=== PATIENT | female | born 1960 | race Caucasian/White ===

== ENCOUNTER → 2018-10-04 | Outpatient (REF) | payer SELFPAY ==
[2018-10-04 16:36] LABS: BASO # 0.1 10^3/uL (0.0-0.2); BASO % 1.1 % (0.0-1.0); EOS # 0.1 10^3/uL (0.0-0.50); EOS % 1.6 % (0.0-3.0); HEMATOCRIT 38.8 % (36.0-47.0); HEMOGLOBIN 12.9 g/dl (12.0-15.5); LYMPH # 2.9 10^3/uL (1.5-4.5); LYMPH % 33.6 % (24.0-44.0); MEAN CORPUSCULAR HEMOGLOBIN 30.5 pg (27.0-33.0); MEAN CORPUSCULAR HGB CONC 33.2 g/dl (32.0-36.5); MEAN CORPUSCULAR VOLUME 91.7 fl (80.0-96.0); MONO # 0.7 10^3/uL (0.0-0.8); MONO % 8.7 % (0.0-5.0); NEUTROPHILS # 4.7 10^3/uL (1.8-7.7); NEUTROPHILS % 54.8 % (36.0-66.0); PLATELET COUNT, AUTOMATED 294 10^3/uL (150-450); RED BLOOD COUNT 4.23 10^6/uL (4.00-5.40); WHITE BLOOD COUNT 8.5 10^3/uL (4.0-10.0)
[2018-10-04 16:41] LABS: ALBUMIN 4.2 GM/DL (3.2-5.2); ALT/SGPT 45 U/L (12-78); BILIRUBIN,TOTAL 0.4 MG/DL (0.2-1.0); BLOOD UREA NITROGEN 26 MG/DL (7-18); CALCIUM LEVEL 9.2 MG/DL (8.8-10.2); CARBON DIOXIDE LEVEL 26 MEQ/L (21-32); CHLORIDE LEVEL 104 MEQ/L (98-107); CHOLESTEROL LEVEL 137 MG/DL (<200); CHOLESTEROL RISK RATIO 2.537 (<5); CREATININE FOR GFR 0.94 MG/DL (0.55-1.30); FREE T4 0.89 NG/DL (0.76-1.46); GLOMERULAR FILTRATION RATE > 60.0 (>45); GLUCOSE, FASTING 99 MG/DL (70-100); HDL CHOLESTEROL 54 MG/DL (>40); LDL CHOLESTEROL 66 MG/DL (<100); NON-HDL-C 83 MG/DL; POTASSIUM SERUM 4.6 MEQ/L (3.5-5.1); SODIUM LEVEL 138 MEQ/L (136-145); TOTAL 25(OH) VITAMIN D 31.8 NG/ML (30.0-100.0); TOTAL PROTEIN 7.4 GM/DL (6.4-8.2); TRIGLYCERIDES LEVEL 86 MG/DL (<150)
[2018-10-04 18:04] LABS: APPEARANCE, URINE CLOUDY (CLEAR); BACTERIA, URINE AUTO NEGATIVE (NEGATIVE); BILIRUBIN, URINE AUTO NEGATIVE (NEGATIVE); BLOOD, URINE BLOOD NEGATIVE (NEGATIVE); COLOR, URINE YELLOW (YELLOW); GLUCOSE, URINE (UA) AUTO NEGATIVE (NEGATIVE); KETONE, URINE AUTO NEGATIVE (NEGATIVE); LEUKOCYTE ESTERASE, URINE AUTO TRACE (NEGATIVE); MUCUS, URINE SMALL (NEGATIVE); NITRITE, URINE AUTO NEGATIVE (NEGATIVE); PROTEIN, URINE AUTO NEGATIVE (NEGATIVE); RBC, URINE AUTO 1 /HPF (0-3); SPECIFIC GRAVITY URINE AUTO 1.018 (1.002-1.035); SQUAMOUS EPITHELIAL CELL UR AU 2 /HPF (0-6); UROBILINOGEN, URINE AUTO 0.2 mg/dL (0.0-2.0); WBC, URINE AUTO 1 /HPF (0-3)
[2018-10-07 00:06] LABS: Lyme Disease IgG/IgM Antibodie <0.91 ISR (0.00-0.90); Lyme Disease IgM Ab Quantitati <0.80 index (0.00-0.79)
== END ==
LOC: M LAB REF 15:57
PROVIDERS: ATTEND Family Medicine
DX: Z13.228 Encounter for screening for other metabolic disorders (principal)

== ENCOUNTER → 2018-11-02 | Outpatient (CLI) | payer MEDICAID ==
--- NOTE | 2018-11-02 17:04 | REP ---
MRI lumbar spine without contrast: History: Low back pain with bilateral numbness and tingling. Technique: Sagittal and axial T1 and T2-weighted scans are acquired in the usual fashion with and without fat saturation. Sequences include spin echo, turbo spin-echo, and STIR imaging sequences. MRI findings: Lumbar vertebral body heights are preserved. Alignment is normal. Pedicles and posterior elements are intact. There is no evidence of spondylolysis or spondylolisthesis. No extra vertebral abnormality is observed. Normal caliber aorta. The tip of the conus medullaris is normal in position and appearance L1. Axial and sagittal images at L1-L2 demonstrate minimal disc bulging. No central canal stenosis or foraminal narrowing. At L2-L3, there is diffuse disc bulging effacing the ventral subarachnoid space. There is mild central canal stenosis due to diffuse disc bulging and developmentally somewhat short pedicles. Midline AP dimension of the thecal sac is 9.7 mm. There is some ligamentum flavum hypertrophy as well at L2-3. No neural foraminal encroachment. At L3-4, there is a left posterior focal disc protrusion compressing the left ventral margin of the thecal sac. The protrusion extends to the through the foraminal segment producing mild left-sided foraminal encroachment as well. Canal is developmentally somewhat small. Midline AP dimension of the thecal sac at the 3-4 level is 8 mm. There is mild facet hypertrophy and L3-4 bilaterally. At L4-L5, there is fairly advanced osteoarthritic facet disease bilaterally with associated ligamentum flavum hypertrophy. There is moderate central canal stenosis due to this and diffuse disc bulging. The AP dimension of the thecal sac and L4-5 is 8 mm. There is mild left-sided foraminal encroachment due to disc bulging and facet hypertrophy. At L5-S1, there is diffuse disc bulging. There is mild right-sided foraminal encroachment due to disc bulging and facet hypertrophy. Facet hypertrophy is worse on the right. Impression: Moderate diffuse degenerative spondylosis changes. Multilevel central canal stenosis at the L3 for a and L4-5. Multilevel neural foraminal narrowing as above. There is a left posterior disc protrusion at L3-4. Electronically Signed by Enrique Dinero MD 11/02/2018 06:23 P
== END ==
LOC: M RAD 11:03
PROVIDERS: ATTEND Family Medicine
DX: M51.26 Other intervertebral disc displacement, lumbar region (principal); M48.061 Spinal stenosis, lumbar region without neurogenic claudication; M47.816 Spondylosis without myelopathy or radiculopathy, lumbar region

== ENCOUNTER → 2018-11-08 | Outpatient (CLI) | payer MEDICAID ==
--- NOTE | 2018-11-08 15:18 | REP ---
BILATERAL SCREENING DIGITAL MAMMOGRAM WITH 3D TOMOSYNTHESIS: This is a baseline study for this patient, there are no comparisons. There are no palpable abnormalities or other breast complaints. The the patient states she has not had a clinical breast examination in over a year. The the patient states she performs self-breast examinations zero times per year. The Tyrer-Cuzick Score is: 7.4% . 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 This disease results in calcium deposition, effects elasticity of skin and blood vessels and can cause blindness similar to macular degeneration. There are scattered areas of fibroglandular density. Additionally, there are at least four nodular densities in the right breast and three nodular densities in the left breast. There are no comparison studies to document stability of these nodular densities. There are calcifications in one of the left breast nodular densities. These calcifications appear to be benign macrocalcifications. There are no additional findings on tomosynthesis. Impression: BIRADS/ACR category 0 mammogram. Incomplete, additional imaging evaluation is needed . Recommendation: The patient should return for spot compression views of the bilateral nodular densities and ultrasound of the nodular densities. This mammogram was interpreted with the aid of a FDA approved computer-aided detection system. A. Negative mammogram reports should not delay biopsy if a dominant or clinically suspicious mass is present. B. Not all breast cancers are identified by mammography or tomosynthesis. C. Adenosis and dense breasts may obscure an underlying neoplasm. Patient letter M0. Electronically Signed by Ruben Morrison MD 11/08/2018 03:09 P
--- NOTE | 2018-11-09 15:20 | DEXA ---
AP SPINE L1 - L4 1.109 -0.7 0.5 LT FEMUR TOTAL 0.933 -0.6 0.3 LT NECK 0.788 -1.8 -0.5 RT FEMUR TOTAL 0.953 -0.4 0.5 RT NECK 0.807 -1.7 -0.4 TOTAL BODY TOTAL OTHER COMMENTS: Normal bone densitometry of the spine. There is low bone density of the hips. FOLLOW-UP: Recommendation for the next bone density exam: 2 years. JUAN
== END ==
LOC: M WHC 12:39
PROVIDERS: ATTEND Family Medicine
DX: Z12.31 Encounter for screening mammogram for malignant neoplasm of breast (principal); Z13.820 Encounter for screening for osteoporosis

== ENCOUNTER → 2018-11-23 | Outpatient (CLI) | payer MEDICAID, OTHER ==
--- NOTE | 2018-11-23 18:00 | REP ---
Digital diagnostic bilateral mammography with CAD and focused bilateral sonography: History: Screening mammography from November 08, 2018 was BIRADS category zero incomplete because of the presence of multiple bilateral nodules for which diagnostic imaging was recommended. No remote prior mammography is available. Mammographic findings: Magnified focal spot compression views of each breast were obtained using craniocaudad, true MLO, and mediolateral oblique projections. These confirm the presence of multiple smoothly marginated nodules scattered bilaterally in each breast. One of these contains typical benign macrocalcifications consistent with calcification in a fibroadenoma. No spiculated lesion is seen. No clustered microcalcification is seen. There is vascular calcification present bilaterally. Sonographic findings: The superior medial quadrant of each breast is scanned along with the upper outer quadrant on the left. Multiple hypoechoic nodules are seen sonographically. In the right breast one o'clock there is a nodule 3.5 cm from the nipple measuring 0.7 x 0.5 x 0.5 cm. In the left breast at 1 o'clock there is a hypoechoic nodule 3.4 cm from the nipple measuring 0.8 x 0.8 x 0.6 cm. In the left breast at 9 o'clock there is a hypoechoic nodule with echogenic foci within it measuring 1.3 x 1.0 x 0.9 cm. This is located 2.2 cm from the nipple. Heterogeneous fibroglandular background echotexture is seen. No acoustic shadowing or other suspicious features are seen. Impression: BIRADS category II benign findings. Repeat screening mammography recommended 1 year. BIRADS 2: BI-RADS/ACR category 2 mammogram. Benign Findings. This mammogram was interpreted with the aid of an FDA-approved computer-aided detection system. The patient states that she/he has not had a clinical breast exam in over a year. The patient letter being requested is m1. [facility] for the breast cancer is 7.4 %. Electronically Signed by Enrique Dinero MD 11/23/2018 06:51 P
== END ==
LOC: M RAD 10:19
PROVIDERS: ATTEND Family Medicine
DX: N63.0 Unspecified lump in unspecified breast (principal); R92.8 Other abnormal and inconclusive findings on diagnostic imaging of breast

== ENCOUNTER → 2018-12-15 | Outpatient (REF) | payer OTHER ==
[~2018-12-15] MED LIST: ACET-683 PO; COLA100C5 PO; CRES40TA PO; CYCL10TA PO; EYE VITAMIN PO; GABA-1171 PO; HYDR-3713 PO; KLON0.5T PO; LATA0.0015 OU; LEXA1TAB2 PO; LIDO1PAD TOP; LISI20TA20 PO; MIRA3350 PO; PROBCAP14 PO
[2018-12-15 12:56] LABS: ALBUMIN 4.3 GM/DL (3.2-5.2); ALT/SGPT 86 U/L (12-78); BILIRUBIN,TOTAL 0.3 MG/DL (0.2-1.0); BLOOD UREA NITROGEN 22 MG/DL (7-18); CALCIUM LEVEL 9.2 MG/DL (8.8-10.2); CARBON DIOXIDE LEVEL 28 MEQ/L (21-32); CHLORIDE LEVEL 103 MEQ/L (98-107); CREATININE FOR GFR 0.97 MG/DL (0.55-1.30); GLOMERULAR FILTRATION RATE > 60.0 (>45); GLUCOSE, FASTING 87 MG/DL (70-100); POTASSIUM SERUM 4.7 MEQ/L (3.5-5.1); SODIUM LEVEL 135 MEQ/L (136-145); TOTAL PROTEIN 8.1 GM/DL (6.4-8.2)
[2018-12-15 13:44] LABS: HEMOGLOBIN A1c 5.6 %
== END ==
LOC: M LAB REF 12:31
PROVIDERS: ATTEND Family Medicine
DX: R73.03 Prediabetes (principal)

== ENCOUNTER → 2018-12-17 | Outpatient (CLI) | payer OTHER ==
--- NOTE | 2018-12-17 12:44 | REP ---
CT CHEST WITHOUT CONTRAST: LOW-DOSE SCREENING EXAM. HISTORY: Nicotine dependence. No comparison chest imaging. CT FINDINGS: There is no evidence of pulmonary mass, infiltrate, or significant pulmonary nodule. Some vascular calcification is visible. There is calcification along the course of the left coronary artery. IMPRESSION: Lung-RADS category 1 negative findings[address] Repeat screening CT study recommended in 1 year. Electronically Signed by Enrique Dinero MD 12/17/2018 01:56 P
== END ==
LOC: M RAD 10:23
PROVIDERS: ATTEND Family Medicine
DX: Z12.2 Encounter for screening for malignant neoplasm of respiratory organs (principal); Z87.891 Personal history of nicotine dependence

== ENCOUNTER 2018-12-21 11:00 | Day surgery (SDC) | payer OTHER ==
[~2018-12-21] VITALS: Ht 157.5 cm; Wt 87.5 kg
[2018-12-21] MEDS ORDERED: NS 1,000 ML IV ONE (11:30)
[2018-12-21] MEDS ORDERED: LIDOCAINE 2% INJ 100 MG/5 ML SDV (FOR ANES.) As Ordered ONE (13:47)
[2018-12-21] MEDS ORDERED: PROPOFOL 200 MG/20 ML VIAL As Ordered ONE ×2 (13:47→14:21)
[2018-12-21] MEDS ORDERED: ePHEDrine SULFATE 25 MG/5 ML(5MG/ML) SYRINGE As Ordered ONE (14:29)
[2018-12-21 14:50] VITALS: BP 179/77
--- NOTE | 2018-12-21 15:12 | ROOR ---
Patient Name: Amaya Felix Procedure Date: 12/21/2018 1:31 PM Date of : 1960 Age: 58 Room: [facility] Gender: Female Note Status: Finalized Procedure: Upper GI endoscopy Indications: Heartburn, Suspected gastro-esophageal reflux disease Providers: Joseph Truong MD Referring MD: Frandy POLLOCK MD Requesting Provider: Medicines: Monitored Anesthesia Care Complications: No immediate complications. Procedure: Pre-Anesthesia Assessment: - Prior to the procedure, a History and Physical was performed, and patient medications and allergies were reviewed. The patient is competent. The risks and benefits of the procedure and the sedation options and risks were discussed with the patient. All questions were answered and informed consent was obtained. Patient identification and proposed procedure were verified by the physician, the nurse and the anesthesiologist in the procedure room. Mental Status Examination: alert and oriented. Respiratory Examination: clear to auscultation. Prophylactic Antibiotics: The patient does not require prophylactic antibiotics. Prior Anticoagulants: The patient has taken no previous anticoagulant or antiplatelet agents. After reviewing the risks and benefits, the patient was deemed in satisfactory condition to undergo the procedure. The anesthesia plan was to use monitored anesthesia care (MAC). Immediately prior to administration of medications, the patient was re-assessed for adequacy to receive sedatives. The heart rate, respiratory rate, oxygen saturations, blood pressure, adequacy of pulmonary ventilation, and response to care were monitored throughout the procedure. The physical status of the patient was re-assessed after the procedure. The Endoscope was introduced through the mouth, and advanced to the second part of duodenum. The upper GI endoscopy was accomplished without difficulty. The patient tolerated the procedure well. Findings: LA Grade B (one or more mucosal breaks greater than 5 mm, not extending between the tops of two mucosal folds) esophagitis with no bleeding was found 33 cm from the incisors. Biopsies were taken with a cold forceps for histology. Verification of patient identification for the specimen was done by the physician and nurse using the patient's name, date and medical record number. Estimated blood loss was minimal. A 3 cm hiatal hernia was present. Scattered mild inflammation characterized by erythema was found in the gastric antrum. Biopsies were taken with a cold forceps for Helicobacter pylori testing. The duodenal bulb and second portion of the duodenum were normal. Impression: - LA Grade B reflux esophagitis. Biopsied. - 3 cm hiatal hernia. - Gastritis. Biopsied. - Normal duodenal bulb and second portion of the duodenum. Recommendation: - Patient has a contact number available for emergencies. The signs and symptoms of potential delayed complications were discussed with the patient. Return to normal activities tomorrow. Written discharge instructions were provided to the patient. - Resume previous diet. - Continue present medications. - Use Protonix (pantoprazole) 40 mg PO twice daily - to be taken in morning (1/2 hour before breakfast) and at bedtime ( atleast 3 hours after last meal) for 3 months. - Await pathology results. - Follow an antireflux regimen. - Repeat upper endoscopy in 3 months to check healing. - Return to GI clinic in [facility] (address [address], [address], [place] [address]) in 4 -- 6 weeks. Please call GI clinic @ [phone] for apppointment date and time. - Return to primary care physician. Joseph Truong MD Joseph Truong MD 12/21/2018 3:11:19 PM Electronically signed by Joseph Truong MD Number of Addenda: 0 Note Initiated On: 12/21/2018 1:31 PM Estimated Blood Loss: Estimated blood loss was minimal.
--- NOTE | 2018-12-21 15:14 | ROOR ---
Patient Name: Amaya Felix Procedure Date: 12/21/2018 1:34 PM Date of : 1960 Age: 58 Room: [facility] Gender: Female Note Status: Finalized Procedure: Colonoscopy Indications: Screening for colorectal malignant neoplasm Providers: Joseph Truong MD Referring MD: Frandy POLLOCK MD Requesting Provider: Medicines: Monitored Anesthesia Care Complications: No immediate complications. Procedure: Pre-Anesthesia Assessment: - Prior to the procedure, a History and Physical was performed, and patient medications and allergies were reviewed. The patient is competent. The risks and benefits of the procedure and the sedation options and risks were discussed with the patient. All questions were answered and informed consent was obtained. Patient identification and proposed procedure were verified by the physician, the nurse and the anesthesiologist in the procedure room. Mental Status Examination: alert and oriented. Airway Examination: normal oropharyngeal airway and neck mobility. Prophylactic Antibiotics: The patient does not require prophylactic antibiotics. Prior Anticoagulants: The patient has taken no previous anticoagulant or antiplatelet agents. ASA Grade Assessment: II - A patient with mild systemic disease. After reviewing the risks and benefits, the patient was deemed in satisfactory condition to undergo the procedure. The anesthesia plan was to use monitored anesthesia care (MAC). Immediately prior to administration of medications, the patient was re-assessed for adequacy to receive sedatives. The heart rate, respiratory rate, oxygen saturations, blood pressure, adequacy of pulmonary ventilation, and response to care were monitored throughout the procedure. The physical status of the patient was re-assessed after the procedure. The Colonoscope was introduced through the anus and advanced to the terminal ileum, with identification of the appendiceal orifice and IC valve. The colonoscopy was performed without difficulty. The patient tolerated the procedure well. The quality of the bowel preparation was good. The terminal ileum, ileocecal valve, appendiceal orifice, and rectum were photographed. Scope insertion time was 3 minutes. Scope withdrawal time was 9 minutes. The total duration of the procedure was 13 minutes. Findings: The perianal and digital rectal examinations were normal. The terminal ileum appeared normal. Five sessile polyps were found in the ascending colon. The polyps were 6 to 8 mm in size. These polyps were removed with a cold snare. Resection and retrieval were complete. Verification of patient identification for the specimen was done by the physician and nurse using the patient's name, date and medical record number. Estimated blood loss was minimal. Three sessile polyps were found in the recto-sigmoid colon. The polyps were 6 to 12 mm in size. These polyps were removed with a cold snare. Resection and retrieval were complete. For hemostasis, one hemostatic clip was successfully placed. There was no bleeding at the end of the procedure. Multiple small and large-mouthed diverticula were found from sigmoid to ascending colon. There was no evidence of diverticular bleeding. Non-bleeding external and internal hemorrhoids were found during retroflexion. The hemorrhoids were medium-sized. Impression: - The examined portion of the ileum was normal. - Five 6 to 8 mm polyps in the ascending colon, removed with a cold snare. Resected and retrieved. - Three 6 to 12 mm polyps at the recto-sigmoid colon, removed with a cold snare. Resected and retrieved. Clip was placed. - Moderate diverticulosis from sigmoid to ascending colon. There was no evidence of diverticular bleeding. - Non-bleeding external and internal hemorrhoids. Recommendation: - Patient has a contact number available for emergencies. The signs and symptoms of potential delayed complications were discussed with the patient. Return to normal activities tomorrow. Written discharge instructions were provided to the patient. - High fiber diet. - Continue present medications. - Await pathology results. - Repeat colonoscopy in 3 - 5 years for surveillance based on pathology results. - Return to GI clinic in [facility] (address [address], [address], [place], [address]) in 4 -- 6 weeks. Please call GI clinic @ [phone] for apppointment date and time. - Return to primary care physician. Joseph Truong MD Joseph Truong MD 12/21/2018 3:14:03 PM Electronically signed by Joseph Truong MD Number of Addenda: 0 Note Initiated On: 12/21/2018 1:34 PM Estimated Blood Loss: Estimated blood loss was minimal.
== END 2018-12-21 15:06 | disposition home or self-care (01) ==
LOC: M OPP 11:00
PROVIDERS: ATTEND Internal Medicine Gastroenterology
DX: Z12.11 Encounter for screening for malignant neoplasm of colon (principal); K64.8 Other hemorrhoids; D12.2 Benign neoplasm of ascending colon; D12.7 Benign neoplasm of rectosigmoid junction; K57.30 Diverticulosis of large intestine without perforation or abscess without bleeding; K21.0 Gastro-esophageal reflux disease with esophagitis; K44.9 Diaphragmatic hernia without obstruction or gangrene; K29.70 Gastritis, unspecified, without bleeding; R12 Heartburn; F17.210 Nicotine dependence, cigarettes, uncomplicated; Z79.891 Long term (current) use of opiate analgesic; Z79.899 Other long term (current) drug therapy; Z88.0 Allergy status to penicillin

== ENCOUNTER → 2019-03-22 | Outpatient (REF) | payer OTHER | LOC: M LAB REF 09:21 | PROVIDERS: ATTEND Dermatology | DX: L72.0 Epidermal cyst (principal) ==

== ENCOUNTER → 2019-03-29 | Outpatient (REF) | payer OTHER ==
[2019-03-29 18:28] LABS: BASO # 0.1 10^3/uL (0.0-0.2); BASO % 1.2 % (0.0-1.0); EOS # 0.1 10^3/uL (0.0-0.5); EOS % 1.5 % (0.0-3.0); HEMATOCRIT 35.2 % (36.0-47.0); HEMOGLOBIN 11.3 g/dl (12.0-15.5); LYMPH # 2.2 10^3/uL (1.5-5.0); MEAN CORPUSCULAR HEMOGLOBIN 30.2 pg (27.0-33.0); MEAN CORPUSCULAR HGB CONC 32.1 g/dl (32.0-36.5); MEAN CORPUSCULAR VOLUME 94.1 fl (80.0-96.0); MONO # 0.6 10^3/uL (0.0-0.8); MONO % 9.9 % (0.0-5.0); NEUTROPHILS % 50.2 % (36.0-66.0); PLATELET COUNT, AUTOMATED 271 10^3/uL (150-450); RED BLOOD COUNT 3.74 10^6/uL (4.00-5.40)
[2019-03-29 18:40] LABS: ALBUMIN 4.3 GM/DL (3.2-5.2); BILIRUBIN,TOTAL 0.4 MG/DL (0.2-1.0); CALCIUM LEVEL 9.6 MG/DL (8.8-10.2); CHOLESTEROL RISK RATIO 3.275 (<5); CREATININE FOR GFR 1.09 MG/DL (0.55-1.30); FREE T4 1.02 NG/DL (0.76-1.46); GLOMERULAR FILTRATION RATE 54.5 (>45); POTASSIUM SERUM 4.4 MEQ/L (3.5-5.1); THYROID STIMULATING HORMONE 1.91 uIU/ML (0.358-3.740); TOTAL 25(OH) VITAMIN D 30.3 NG/ML (30.0-100.0); TOTAL PROTEIN 7.5 GM/DL (6.4-8.2)
[2019-03-29 18:41] LABS: HEMOGLOBIN A1c 5.9 %
== END ==
LOC: M LAB REF 16:23
PROVIDERS: ATTEND Physician Assistant
DX: L98.9 Disorder of the skin and subcutaneous tissue, unspecified (principal); E78.5 Hyperlipidemia, unspecified; Q82.8 Other specified congenital malformations of skin; F41.9 Anxiety disorder, unspecified; R73.03 Prediabetes; M54.5 Low back pain

== ENCOUNTER → 2019-06-07 | Outpatient (CLI) | payer OTHER ==
[~2019-06-07] MED LIST changes: +CYCL-707 PO; -CYCL10TA PO
[2019-06-07 17:44] LABS: BASO # 0.1 10^3/uL (0.0-0.2); EOS # 0.1 10^3/uL (0.0-0.5); EOS % 1.3 % (0.0-3.0); HEMATOCRIT 37.3 % (36.0-47.0); LYMPH # 2.2 10^3/uL (1.5-5.0); LYMPH % 34.5 % (24.0-44.0); MEAN CORPUSCULAR HEMOGLOBIN 31.4 pg (27.0-33.0); MEAN CORPUSCULAR HGB CONC 32.2 g/dl (32.0-36.5); MEAN CORPUSCULAR VOLUME 97.6 fl (80.0-96.0); MONO # 0.6 10^3/uL (0.0-0.8); MONO % 9.4 % (0.0-5.0); NEUTROPHILS # 3.4 10^3/uL (1.5-8.5); NEUTROPHILS % 53.6 % (36.0-66.0); PLATELET COUNT, AUTOMATED 277 10^3/uL (150-450); RED BLOOD COUNT 3.82 10^6/uL (4.00-5.40); WHITE BLOOD COUNT 6.3 10^3/uL (4.0-10.0)
[2019-06-07 17:53] LABS: FERRITIN 128 NG/ML (8-252); IRON (FE) 71 UG/DL (50-170)
[2019-06-07 17:58] LABS: FOLATE > 24.0 NG/ML (>5.4); VITAMIN B12 LEVEL 1842 PG/ML (247-911)
== END ==
LOC: M LRY 10:49
PROVIDERS: ATTEND Physician Assistant
DX: D64.9 Anemia, unspecified (principal)

== ENCOUNTER → 2019-06-22 | Outpatient (REF) | payer OTHER | LOC: M LAB REF 18:02 | PROVIDERS: ATTEND Dermatology | DX: D17.1 Benign lipomatous neoplasm of skin and subcutaneous tissue of trunk (principal) ==

== ENCOUNTER → 2019-07-30 | Outpatient (CLI) | payer OTHER | LOC: M LABSMTC 09:41 | PROVIDERS: ATTEND Orthopaedic Surgery | DX: Z11.59 Encounter for screening for other viral diseases (principal) ==

== ENCOUNTER → 2019-08-21 | Outpatient (CLI) | payer OTHER ==
[~2019-08-21] MED LIST changes: +ATOR1TAB19 PO; +PANT40TA29 PO; +TIZA4CAP6 PO
== END ==
LOC: M LABSMTC 11:29
PROVIDERS: ATTEND Internal Medicine
DX: Z11.59 Encounter for screening for other viral diseases (principal)
CPT/HCPCS: C9803; U0003

== ENCOUNTER 2019-08-26 07:13 | Day surgery (SDC) | payer OTHER ==
[~2019-08-26] VITALS: Ht 160 cm; Wt 90.7 kg
[~2019-08-26 07:13] MED LIST changes: +NS 1,000 ML IV ONE
[2019-08-26] MEDS ORDERED: propofoL 200 MG/20 ML VIAL As Ordered ONE (08:16)
[2019-08-26] MEDS ORDERED: LIDOCAINE 2% 100MG/5ML SDV (FOR ANES.) As Ordered ONE (08:16)
--- NOTE | 2019-08-26 08:54 | ROOR ---
Patient Name: Amaya Felix Procedure Date: 08/26/2019 8:32 AM Date of : 1960 Age: 59 Room: [facility] Gender: Female Note Status: Finalized Procedure: Upper GI endoscopy Indications: Unexplained iron deficiency anemia, Heartburn Providers: Joseph Truong MD Referring MD: SHIKHA Craig Requesting Provider: Medicines: Monitored Anesthesia Care Complications: No immediate complications. Procedure: Pre-Anesthesia Assessment: - Prior to the procedure, a History and Physical was performed, and patient medications and allergies were reviewed. The patient is competent. The risks and benefits of the procedure and the sedation options and risks were discussed with the patient. All questions were answered and informed consent was obtained. Patient identification and proposed procedure were verified by the physician, the nurse and the anesthesiologist in the procedure room. Mental Status Examination: alert and oriented. Airway Examination: normal oropharyngeal airway and neck mobility. Respiratory Examination: clear to auscultation. CV Examination: normal. Prophylactic Antibiotics: The patient does not require prophylactic antibiotics. Prior Anticoagulants: The patient has taken no previous anticoagulant or antiplatelet agents. ASA Grade Assessment: II - A patient with mild systemic disease. After reviewing the risks and benefits, the patient was deemed in satisfactory condition to undergo the procedure. The anesthesia plan was to use monitored anesthesia care (MAC). Immediately prior to administration of medications, the patient was re-assessed for adequacy to receive sedatives. The heart rate, respiratory rate, oxygen saturations, blood pressure, adequacy of pulmonary ventilation, and response to care were monitored throughout the procedure. The physical status of the patient was re-assessed after the procedure. The Endoscope was introduced through the mouth, and advanced to the second part of duodenum. The upper GI endoscopy was accomplished without difficulty. The patient tolerated the procedure well. Findings: LA Grade A (one or more mucosal breaks less than 5 mm, not extending between tops of 2 mucosal folds) esophagitis with no bleeding was found in the distal esophagus. Biopsies were taken with a cold forceps for histology. Verification of patient identification for the specimen was done by the physician and nurse using the patient's name, date and medical record number. Estimated blood loss was minimal. A small hiatal hernia was present. Scattered mild inflammation characterized by erythema and granularity was found in the gastric antrum. Biopsies were taken with a cold forceps for Helicobacter pylori testing. The duodenal bulb and second portion of the duodenum were normal. Biopsies for histology were taken with a cold forceps for evaluation of celiac disease. There is no endoscopic evidence of bleeding in the entire examined stomach. Impression: - LA Grade A reflux esophagitis. Biopsied. - Small hiatal hernia. - Gastritis. Biopsied. - Normal duodenal bulb and second portion of the duodenum. Biopsied. Recommendation: - Patient has a contact number available for emergencies. The signs and symptoms of potential delayed complications were discussed with the patient. Return to normal activities tomorrow. Written discharge instructions were provided to the patient. - High fiber diet. - Continue present medications. - Follow an antireflux regimen. - Await pathology results. - Telephone GI clinic for pathology results in 2 weeks. - Return to primary care physician. Joseph Truong MD Joseph Truong MD 08/26/2019 8:53:48 AM Electronically signed by Joseph Truong MD Number of Addenda: 0 Note Initiated On: 08/26/2019 8:32 AM Estimated Blood Loss: Estimated blood loss: none.
[2019-08-26 09:15] VITALS: BP 121/57
== END 2019-08-26 09:35 | disposition home or self-care (01) ==
LOC: M OPP 07:13
PROVIDERS: ATTEND Internal Medicine Gastroenterology
DX: K21.0 Gastro-esophageal reflux disease with esophagitis (principal); K44.9 Diaphragmatic hernia without obstruction or gangrene; K29.70 Gastritis, unspecified, without bleeding; R12 Heartburn; Z79.899 Other long term (current) drug therapy; Z88.0 Allergy status to penicillin

== ENCOUNTER → 2019-10-19 | Outpatient (CLI) | payer OTHER ==
[~2019-10-19] MED LIST changes: -NS 1,000 ML IV ONE
--- NOTE | 2019-10-19 09:38 | REPVR ---
PROCEDURE INFORMATION: Exam: MR Lumbar Spine Without Contrast. Exam date and time: 10/19/2019 7:56 AM Age: 59 years old Clinical indication: Low back pain; Patient HX: Lbp; Additional info: Ddd, x-rays also TECHNIQUE: Imaging protocol: Multiplanar magnetic resonance images of the lumbar spine without intravenous contrast. COMPARISON: MRI-Spine, L.S. without con 11/02/2018 11:24 AM FINDINGS: Vertebrae: There is no fracture or listhesis. Normal vertebral body alignment and heights are preserved. Spinal cord: Normal signal. No cord compression. L1-L2: There is shallow disc bulging. There is mild facet hypertrophy. The spinal canal and neural foramina are patent. L2-L3: There is shallow disc bulging. There is moderate to severe facet and ligamentous hypertrophy. The spinal canal and neural foramina are patent. L3-L4: There is diffuse disc bulging with a superimposed left subarticular disc protrusion/extrusion. This effaces the left lateral recess, with potential compromise of the left L4 nerve root. There is moderate facet and ligamentous hypertrophy. There is mild canal stenosis. There mild right and moderate left neural foraminal narrowing. L4-L5: There is diffuse disc bulging. There is severe facet and ligamentous hypertrophy. There is moderate bilateral lateral recess stenosis. There is mild canal stenosis, with a residual diameter of 9 mm. There is moderate bilateral neural foraminal narrowing. L5-S1: There is diffuse disc bulging. There is severe facet hypertrophy asymmetric to the right. There is severe right and moderate to severe left neural foraminal narrowing. Soft tissues: Unremarkable. IMPRESSION: Degenerative disc disease and spondylosis. At L3/4, left subarticular protrusion effaces the left lateral recess, with potential compromise of the left L4 nerve root. At L5/S1, changes contribute to severe right and moderate to severe left neural foraminal narrowing. Electronically signed by: Jalyn Wall On 10/19/2019 09:38:24 AM
--- NOTE | 2019-11-07 10:35 | REP ---
LUMBOSACRAL SPINE SERIES CLINICAL: Back pain, degenerative disease. TECHNIQUE: AP, lateral, flexion-extension, bilateral oblique, and coned down views of the lumbosacral spine. FINDINGS: Moderate osteopenia and moderate advanced multilevel degenerative changes including endplate sclerosis, marginal spurring, hypertrophic facet changes, and disc space narrowing noted. Findings most pronounced at the L4-5 and L5-S1 levels. Alignment is maintained and there is no evidence for acute fracture/compression injury or subluxation. No obvious spondylolysis or spondylolisthesis noted. IMPRESSION: Osteopenia and degenerative changes primarily involving L4-5 and L5-S1. If the patient remains symptomatic consider MRI for further investigation. MTDD
--- NOTE | 2019-11-07 10:36 | REP ---
BILATERAL PELVIS AND HIPS CLINICAL: Pain, degenerative disease. TECHNIQUE: Frontal view of the pelvis with neutral and frog lateral views of the bilateral hips. FINDINGS: Age-related osteopenia and moderate symmetric degenerative changes to the hips noted. There is no evidence for acute fracture or dislocation. Degenerative changes include increased sclerosis along the acetabular roof with mild associated joint space narrowing. IMPRESSION: Mild symmetric degenerative changes to the bilateral hips. MTDD
== END ==
LOC: M RAD 06:34
PROVIDERS: ATTEND Physician Assistant
DX: M85.80 Other specified disorders of bone density and structure, unspecified site (principal); M51.36 Other intervertebral disc degeneration, lumbar region; M48.062 Spinal stenosis, lumbar region with neurogenic claudication

== ENCOUNTER → 2020-03-09 | Outpatient (REF) | payer OTHER ==
[2020-03-09 16:03] LABS: BASO # 0.1 10^3/uL (0.0-0.2); BASO % 1.6 % (0.0-1.0); EOS # 0.1 10^3/uL (0.0-0.5); EOS % 1.1 % (0.0-3.0); HEMATOCRIT 39.5 % (36.0-47.0); HEMOGLOBIN 12.6 g/dl (12.0-15.5); LYMPH # 2.1 10^3/uL (1.5-5.0); MEAN CORPUSCULAR HEMOGLOBIN 30.2 pg (27.0-33.0); MEAN CORPUSCULAR HGB CONC 31.9 g/dl (32.0-36.5); MEAN CORPUSCULAR VOLUME 94.7 fl (80.0-96.0); MONO # 0.6 10^3/uL (0.0-0.8); MONO % 9.9 % (0.0-5.0); NEUTROPHILS # 2.8 10^3/uL (1.5-8.5); NEUTROPHILS % 49.2 % (36.0-66.0); PLATELET COUNT, AUTOMATED 287 10^3/uL (150-450); RED BLOOD COUNT 4.17 10^6/uL (4.00-5.40); WHITE BLOOD COUNT 5.6 10^3/uL (4.0-10.0)
[2020-03-09 16:27] LABS: HEMOGLOBIN A1c 5.7 %
[2020-03-09 16:41] LABS: ALBUMIN 4.5 GM/DL (3.2-5.2); BILIRUBIN,TOTAL 0.3 MG/DL (0.2-1.0); CALCIUM LEVEL 9.8 MG/DL (8.8-10.2); CHOLESTEROL RISK RATIO 4.367 (<5); CREATININE FOR GFR 1.04 MG/DL (0.55-1.30); FREE T4 1.01 NG/DL (0.76-1.46); GLOMERULAR FILTRATION RATE 57.4 (>45); POTASSIUM SERUM 4.8 MEQ/L (3.5-5.1); THYROID STIMULATING HORMONE 0.967 uIU/ML (0.358-3.740); TOTAL 25(OH) VITAMIN D 40.4 NG/ML (30.0-100.0); TOTAL PROTEIN 7.7 GM/DL (6.4-8.2)
== END ==
LOC: M LAB REF 15:46
PROVIDERS: ATTEND Physician Assistant
DX: I10 Essential (primary) hypertension (principal)

== ENCOUNTER → 2020-05-25 | Outpatient (CLI) | payer OTHER ==
[2020-05-25 09:56] LABS: CHOLESTEROL RISK RATIO 3.588 (<5)
== END ==
LOC: M LAB 08:26
PROVIDERS: ATTEND Physician Assistant
DX: E78.5 Hyperlipidemia, unspecified (principal)

== ENCOUNTER → 2020-07-02 | Outpatient (CLI) | payer MEDICARE, OTHER ==
[2020-07-02 11:05] LABS: BASO # 0.1 10^3/uL (0.0-0.2); BASO % 1.4 % (0.0-1.0); EOS # 0.1 10^3/uL (0.0-0.5); EOS % 1.4 % (0.0-3.0); HEMATOCRIT 36.6 % (36.0-47.0); HEMOGLOBIN 11.7 g/dl (12.0-15.5); LYMPH # 1.9 10^3/uL (1.5-5.0); LYMPH % 33.2 % (24.0-44.0); MEAN CORPUSCULAR HEMOGLOBIN 30.6 pg (27.0-33.0); MEAN CORPUSCULAR VOLUME 95.8 fl (80.0-96.0); MONO # 0.7 10^3/uL (0.0-0.8); MONO % 11.6 % (2.0-8.0); PLATELET COUNT, AUTOMATED 280 10^3/uL (150-450); RED BLOOD COUNT 3.82 10^6/uL (4.00-5.40); WHITE BLOOD COUNT 5.7 10^3/uL (4.0-10.0)
[2020-07-02 12:36] LABS: ALBUMIN 4.1 GM/DL (3.2-5.2); BILIRUBIN,TOTAL 0.4 MG/DL (0.2-1.0); CALCIUM LEVEL 9.3 MG/DL (8.8-10.2); CREATININE FOR GFR 1.03 MG/DL (0.55-1.30); GLOMERULAR FILTRATION RATE 57.8 (>45); POTASSIUM SERUM 4.6 MEQ/L (3.5-5.1); THYROID STIMULATING HORMONE 0.908 uIU/ML (0.358-3.740); TOTAL 25(OH) VITAMIN D 48.9 NG/ML (30.0-100.0); TOTAL PROTEIN 7.5 GM/DL (6.4-8.2)
== END ==
LOC: M LAB 08:54
PROVIDERS: ATTEND Physician Assistant
DX: R73.03 Prediabetes (principal); Z79.899 Other long term (current) drug therapy

== ENCOUNTER → 2020-08-26 | Outpatient (CLI) | payer MEDICARE, OTHER ==
--- NOTE | 2020-08-28 11:35 | SLEEPCENT ---
DATE: 08/26/2020 ORDERED BY: RAYMOND Castillo Nocturnal polysomnography was performed for evaluation of sleep physiology in this patient with a history of excessive somnolence, observed apnea, and nonrestorative sleep. Eight hours and 1 minute of data were reviewed. There were 349 minutes of sleep identified. Sleep latency was prolonged at 55.5 minutes. REM latency was prolonged at 245.5 minutes. Sleep architecture showed poor progression through the first several hours. There were two REM cycles noted later. Overall sleep efficiency was 73.3%. The electrocardiogram showed a sinus rhythm with small complexes. Average heart rate was 60 beats per minute. Rate ranged 45-80. EEG showed normal waveforms for wake and sleep. There were 44 respiratory events identified of 10 seconds in duration or greater for an apnea-hypopnea index of 7.6. The events were primarily obstructive, not exclusive to sleep stage nor body position. Arousals from respiratory events occurred 2.4 times per hour. There were no significant oxygen desaturations appreciated. Limb activity was also noted. There were four trains of 30 events. The limb movement arousal index was 10. IMPRESSIONS: 1. Obstructive sleep apnea syndrome (G47.33). Apnea-hypopnea index 7.6. 2. Periodic limb movement disorder (G47.61). Limb movement arousal index 10. RECOMMENDATION: The patient should be encouraged to return to [facility]. In the interim, alcohol and sedative avoidance should be practiced and caution exercised during the operation of motor vehicles. Pending response to pressure therapy interventions to reduce the frequency of arousal from limb activity may also be helpful. cc: SHIKHA De Souza
== END ==
LOC: M SLEEP 20:00
PROVIDERS: ATTEND Nurse Practitioner Family
DX: G47.33 Obstructive sleep apnea (adult) (pediatric) (principal); G47.61 Periodic limb movement disorder

== ENCOUNTER → 2020-10-08 | Outpatient (CLI) | payer MEDICARE, OTHER ==
[2020-10-08 08:58] LABS: BASO # 0.1 10^3/uL (0.0-0.2); BASO % 1.1 % (0.0-1.0); EOS # 0.1 10^3/uL (0.0-0.5); EOS % 2.1 % (0.0-3.0); HEMATOCRIT 35.2 % (36.0-47.0); HEMOGLOBIN 11.4 g/dl (12.0-15.5); LYMPH % 32.3 % (24.0-44.0); MEAN CORPUSCULAR HEMOGLOBIN 31.4 pg (27.0-33.0); MEAN CORPUSCULAR HGB CONC 32.4 g/dl (32.0-36.5); MONO # 0.6 10^3/uL (0.0-0.8); MONO % 9.7 % (2.0-8.0); NEUTROPHILS # 3.4 10^3/uL (1.5-8.5); NEUTROPHILS % 54.3 % (36.0-66.0); PLATELET COUNT, AUTOMATED 261 10^3/uL (150-450); RED BLOOD COUNT 3.63 10^6/uL (4.00-5.40); WHITE BLOOD COUNT 6.2 10^3/uL (4.0-10.0)
[2020-10-08 09:13] LABS: HEMOGLOBIN A1c 5.8 %
[2020-10-08 09:30] LABS: CHOLESTEROL RISK RATIO 3.34 (<5); PERCENT SATURATION 24.4 % (13.2-45.0)
== END ==
LOC: M LAB 08:08
PROVIDERS: ATTEND Physician Assistant
DX: D64.9 Anemia, unspecified (principal); E78.5 Hyperlipidemia, unspecified; R73.03 Prediabetes

== ENCOUNTER → 2020-10-25 | Outpatient (CLI) | payer MEDICARE, OTHER ==
--- NOTE | 2020-10-25 10:56 | REP ---
INDICATION: AAA, STENOSIS, PVD, SMOKING COMPARISON: None. TECHNIQUE: Real-time ultrasound evaluation and duplex Doppler interrogation of the extracranial carotid vasculature is performed. FINDINGS: There is moderate plaquing and narrowing in both carotid bulbs extending into the internal and external carotid arteries. Luminal narrowing is less than 50%. There is no evidence of hemodynamically significant stenosis of either internal carotid artery. Normal flow velocities are seen. The vertebral arteries demonstrate normal direction of flow. RIGHT LEFT Peak systolic velocity ICA 105.7 cm/s 78.7 cm/s End diastolic velocity ICA 36.2 cm/s 24.8 cm/s Peak systolic velocity CCA 76.6 cm/s 61.4cm/s Peak systolic velocity ECA 61.2 cm/s 142.4 cm/s ICA/CCA ratio 1.38 1.28 IMPRESSION: Bilateral luminal narrowing of the internal carotid arteries less than 50%. No evidence of hemodynamically significant stenosis. <Electronically signed by Ruben Yanez > 10/25/20 [id number]
--- NOTE | 2020-10-25 11:00 | REP ---
INDICATION: AAA, STENOSIS, PVD, SMOKING. COMPARISON: None. TECHNIQUE: Real-time sonographic evaluation of the abdominal aorta performed. FINDINGS: There is no sonographic evidence of abdominal aortic aneurysm. Maximum AP diameter of abdominal aorta: Proximal (at diaphragm):1.7 cm. At renal artery level: 1.6 cm Mid abdominal aorta:1.3 cm. Distal abdominal aorta (prebifurcation): 1.2 cm. Maximum AP diameter common iliac arteries: Right: 8 mm. Left: 9mm. There is significant calcified plaque at the aortic bifurcation extending into the common iliac arteries bilaterally. Peak systolic velocity of the right common iliac arteries 235 centimeters/second, left 228 centimeter/second. Peak systolic velocity of the distal abdominal aorta is 100 centimeter/second. Right external iliac artery velocity 85 centimeters/second, left 97 centimeters/second. Monophasic waveforms in the common iliac arteries and biphasic waveforms in the external iliac arteries. IMPRESSION: No sonographic evidence of abdominal aortic aneurysm.Calcified plaque in the region of the aortic bifurcation extending into the common iliac arteries bilaterally, with findings suggesting mild bilateral common iliac artery stenosis. <Electronically signed by Ruben Yanez > 10/25/20 [id number]
--- NOTE | 2020-10-25 11:04 | REP ---
INDICATION: AAA, STENOSIS, PVD, SMOKING COMPARISON: None. TECHNIQUE: Real time yanez scale and Duplex Doppler evaluation of the bilateral lower extremity arterial vasculature using linear high frequency transducer. FINDINGS: Yanez scale and duplex doppler images demonstrate moderate calcific plaque diffusely bilaterally. Below the level of the knees, the arterial structures are very small in caliber with calcified jordan. There is no duplex Doppler sonographic evidence of focal significant stenosis bilaterally. There diffuse triphasic and biphasic waveforms, with monophasic waveform in the right profunda. Peak systolic velocities (cm/sec) Common femoral artery: Right 166; Left 109 Profunda femoris: Right 123; Left 104 SFA (proximal): Right 119; Left 89 SFA (mid): Right 93; Left 105 SFA (distal): Right 88; Left 75 Popliteal artery: Right 48; Left 57 LETY (prox.): Right 53; Left 44 Tibioperoneal trunk: Right 30; Left 35 SOUND CONTROLLER (prox.): Right 32; Left 45 SOUND CONTROLLER (distal): Right 36; Left 33 LETY (distal): Right 53; Left 53 IMPRESSION: Moderate diffuse calcific plaque bilaterally, with no evidence of arterial occlusion and no focal hemodynamically significant stenosis bilaterally. <Electronically signed by Ruben Yanez > 10/25/20 1100
== END ==
LOC: M RAD 07:43
PROVIDERS: ATTEND Physician Assistant Medical
DX: I73.9 Peripheral vascular disease, unspecified (principal); I65.23 Occlusion and stenosis of bilateral carotid arteries; I70.0 Atherosclerosis of aorta